=== PATIENT | female | born 1970 ===

== ENCOUNTER 2017-10-29 09:50 | Emergency (ER) | payer MEDICAID, OTHER ==
[2017-10-29 10:10] VITALS: RESP 16; TEMP 98.6
--- NOTE | 2017-10-29 11:26 | C.PDOC ---
History Of Present Illness 47 year old female presents to the ED for evaluation of sinus congestion, sore throat, dry cough and subjective fever and chills since yesterday. Patient denies shortness of breath and chest pain. Patient states distant history of asthma but states "but just feels like a cold." No fever meds taken. SINUS CONGESTION, SORE THROAT, DRY COUGH SUBJ FEVER, CHILLS SINCE YEST. NO SOB, CP. PS DISTANT HX OF ASTHMA "BUT JUST FEELS LIKE A COLD" NO FEVER MEDS TAKEN EXAM MILD DIST NONTOXIC HEENT +RHINORRHEA;+SINUS KIANNA; THROAT CLEAR LUNGS CTA B/LNO W/R/R REMAINDER NEG Time Seen by Provider: 10/29/17 11:05 Chief Complaint (Nursing): Flu-like Symptoms History Per: Patient History/Exam Limitations: no limitations Onset/Duration Of Symptoms: Hrs Current Symptoms Are (Timing): Still Present Associated Symptoms: Fever, Chills, Sore Throat, Cough. denies: Sputum Additional History Per: Patient Past Medical History Reviewed: Historical Data, Nursing Documentation, Vital Signs Vital Signs: Last Vital Signs Temp 98.6 F 10/29/17 10:02 Pulse 74 10/29/17 11:35 Resp 16 10/29/17 11:35 BP 115/77 10/29/17 11:35 Pulse Ox 98 10/29/17 11:35 - Medical History PMH: Asthma, Hypercholesterolemia Surgical History: No Surg Hx - [facility] TETANUS TOXOID ADMINIST (04/07/14) Family History: States: Unknown Family Hx - Social History Hx Tobacco Use: Yes Hx Alcohol Use: Yes Hx Substance Use: No - Immunization History Hx Tetanus Toxoid Vaccination: No Hx Influenza Vaccination: No Hx Pneumococcal Vaccination: No Review Of Systems Constitutional: Positive for: Fever ENT: Positive for: Throat Pain Cardiovascular: Negative for: Chest Pain Respiratory: Positive for: Cough. Negative for: Shortness of Breath, Sputum Physical Exam - Physical Exam Appears: Non-toxic, Other (in mild distress ) Skin: Normal Color, Warm, Dry Head: Atraumatic, Normacephalic Eye(s): bilateral: Normal Inspection Ear(s): Bilateral: Normal Nose: Other (rhinorrhea, sinus congestion ) Oral Mucosa: Moist Throat: Normal, No Erythema, No Exudate Neck: Supple Chest: Symmetrical, No Deformity, No Tenderness Cardiovascular: Rhythm Regular, No Murmur Respiratory: Normal Breath Sounds, No Rales, No Rhonchi, No Wheezing Extremity: Normal ROM, Capillary Refill (less than 2 seconds ) Neurological/Psych: Oriented x3, Normal Speech, Normal Cognition ED Course And Treatment O2 Sat by Pulse Oximetry: 96 (on RA) Pulse Ox Interpretation: Normal Disposition Counseled Patient/Family Regarding: Diagnosis, Need For Followup, Rx Given - Disposition Referrals: YOUR,PMD [Other] Disposition: HOME/ ROUTINE Disposition Time: 11:27 Condition: GOOD Prescriptions: Benzonatate [Tessalon Perles] 200 mg PO TID PRN #15 sgl PRN Reason: Cough Pseudoephedrine HCl [Sudafed 24 Hour] 240 mg PO DAILY PRN #1 unit PRN Reason: Sinus Symptoms Instructions: Cold Symptoms (ED) Forms: [facility] (Indonesian), Work Excuse - Clinical Impression Clinical Impression: Upper respiratory infection - Scribe Statement The provider has reviewed the documentation as recorded by the Scribe (Karishma Gresham) Provider Attestation: All medical record entries made by the Scribe were at my direction and personally dictated by me. I have reviewed the chart and agree that the record accurately reflects my personal performance of the history, physical exam, medical decision making, and the department course for this patient. I have also personally directed, reviewed, and agree with the discharge instructions and disposition.
[2017-10-29 11:36] VITALS: BP 115/77; PULSE 74
[2017-10-29 18:46] VITALS: O2SAT 96
== END 2017-10-29 11:35 | disposition home or self-care (01) ==
LOC: C.ER 09:50
DX: J06.9 Acute upper respiratory infection, unspecified (principal)